=== PATIENT | male | born 1975 ===

== ENCOUNTER → 2023-08-26 | Outpatient (RCR) | payer BC | LOC: PT 07-29 07:35 | PROVIDERS: ATTEND Podiatrist Foot & Ankle Surgery | DX: M21.371 Foot drop, right foot (principal); M62.81 Muscle weakness (generalized); R26.2 Difficulty in walking, not elsewhere classified ==

== ENCOUNTER 2023-08-28 07:27 | Outpatient (RCR) | payer BC | END 2023-09-25 | LOC: PT 07:27 | PROVIDERS: ATTEND Podiatrist Foot & Ankle Surgery | DX: M21.371 Foot drop, right foot (principal); M62.81 Muscle weakness (generalized); R26.2 Difficulty in walking, not elsewhere classified ==